=== PATIENT | female | born 1955 | race Two or more races ===

== ENCOUNTER 2019-04-22 12:52 | Emergency (ER) | payer OTHER ==
[~2019-04-22] VITALS: Ht 157.5 cm; Wt 57.2 kg
== END 2019-04-22 14:55 | disposition home or self-care (01) ==
LOC: ER 12:52
DX: H66.91 Otitis media, unspecified, right ear (principal); J03.90 Acute tonsillitis, unspecified

== ENCOUNTER 2019-04-25 18:56 | Emergency (ER) | payer OTHER ==
[~2019-04-25] VITALS: Ht 157.5 cm; Wt 57.2 kg
== END 2019-04-25 22:19 | disposition home or self-care (01) ==
LOC: ER 18:56
DX: S13.8XXA Sprain of joints and ligaments of other parts of neck, initial encounter (principal); R51 Headache; X50.9XXA Other and unspecified overexertion or strenuous movements or postures, initial encounter; Y93.89 Activity, other specified; Y92.89 Other specified places as the place of occurrence of the external cause; Y99.8 Other external cause status